=== PATIENT | female | born 1940 | race Caucasian/White ===

== ENCOUNTER → 2017-02-22 | Outpatient (CLI) | payer OTHER, MEDICARE ==
[~2017-02-22] MED LIST: ASPCH81X PO; BROM0.07 OPR; CALC500C70 PO; CHOL100010 PO; PRED1SUS3; PRED1SUS3 OPR; TIMO0.5S2 OPB; TRAV0.00 OPB; TRAZ50TA35 PO
== END | disposition home or self-care (01) ==
LOC: C.LABSPEC 15:30
PROVIDERS: ATTEND Physician Assistant
DX: N89.8 Other specified noninflammatory disorders of vagina (principal)

== ENCOUNTER → 2017-06-03 | Outpatient (CLI) | payer OTHER, MEDICARE | END | disposition home or self-care (01) | LOC: C.MAMM 09:52 | PROVIDERS: ATTEND Family Medicine | DX: R68.84 Jaw pain (principal); M81.0 Age-related osteoporosis without current pathological fracture ==

== ENCOUNTER → 2017-10-21 | Day surgery (SDC) | payer OTHER, MEDICARE ==
[~2017-10-21] VITALS: Ht 153.7 cm; Wt 68.1 kg
[~2017-10-21] MED LIST changes: +SIMV10TA2 PO; +ZOLEDRONIC ACID INJ 5 MG in EMPTY BAG 0 ML IV SCH
[2017-10-21 08:13] VITALS: BP 118/81; PULSE 68; TEMP 36.6; O2SAT 97; Ht 153.7 cm; Wt 68.1 kg
== END | disposition home or self-care (01) ==
LOC: C.MTU 08:03
PROVIDERS: ATTEND Family Medicine
DX: M81.0 Age-related osteoporosis without current pathological fracture (principal)

== ENCOUNTER → 2017-10-28 | Outpatient (CLI) | payer OTHER, MEDICARE ==
[~2017-10-28] MED LIST changes: -BROM0.07 OPR; -PRED1SUS3; -PRED1SUS3 OPR; -ZOLEDRONIC ACID INJ 5 MG in EMPTY BAG 0 ML IV SCH
--- NOTE | 2017-10-28 17:38 | DIAGNOSTIC IMAGING REPORT ---
LUMBAR SPINE 5 VIEWS HISTORY: Low back pain. COMPARISON: Lumbar spine 02/04/2007. FINDINGS: There is no fracture. No subluxation. Cholecystectomy clips within the right upper quadrant. Suture material is also seen within the right upper quadrant. The sacrum appears intact. Mild facet degenerative changes within the lower lumbar spine. Mild disc space narrowing at L4-L5, unchanged. Remaining disc spaces are preserved. IMPRESSION: No fracture or subluxation within the lumbar spine. Mild degenerative disc disease at L4-L5 is again noted. Electronically signed by: Ramiro Hou M.D. 10/28/2017 5:37 PM Dictated Date/Time: 10/28/2017 5:34 PM
== END | disposition home or self-care (01) ==
LOC: C.RAD1850 16:23
PROVIDERS: ATTEND Family Medicine
DX: M54.5 Low back pain (principal); M81.0 Age-related osteoporosis without current pathological fracture